=== PATIENT | female | born 1980 | race Caucasian/White ===

== ENCOUNTER 2017-07-13 10:31 | Outpatient (RCR) | payer MEDICAID ==
[~2017-07-13 10:31] MED LIST: AGM875T PO; CYCL10TA9 PO; FRS325T; HEADACHE RELIEF; HYDR1TAB PO; IPRA3AMP19 IH; METH4TAB PO; ONDN4T; PNV; PREN1TAB4; PROP1TAB77; TRAM-21 PO; [UNRECOGNIZED DRUG - CODE]
== END 2017-07-28 | disposition home or self-care (01) ==
PROVIDERS: ATTEND Orthopaedic Surgery Sports Medicine
DX: M25.562 Pain in left knee (principal)

== ENCOUNTER → 2017-11-06 | Outpatient (CLI) | payer MEDICAID ==
[2017-11-06 16:16] LABS: BASOPHILS # (AUTO) 0.1 10^3/uL (0.0-0.1); BASOPHILS % (AUTO) 1 % (0-10); EOSINOPHILS # (AUTO) 0.2 10^3/uL (0.0-0.3); EOSINOPHILS % (AUTO) 2 % (0-10); HEMATOCRIT 39 % (35-52); HEMOGLOBIN 13.4 G/DL (11.5-16.0); LYMPHOCYTES # (AUTO) 2.6 X 10^3 (1.0-4.0); LYMPHOCYTES % (AUTO) 28 % (12-44); MEAN CORPUSCULAR HEMOGLOBIN 32 PG (25-34); MEAN CORPUSCULAR HGB CONC 35 G/DL (32-36); MEAN CORPUSCULAR VOLUME 92 FL (80-99); MEAN PLATELET VOLUME 10.1 FL (7.4-10.4); MONOCYTES # (AUTO) 0.4 X 10^3 (0.0-1.0); MONOCYTES % (AUTO) 4 % (0-12); NEUTROPHILS # (AUTO) 6.2 X 10^3 (1.8-7.8); NEUTROPHILS % (AUTO) 65 % (42-75); PLATELET COUNT 295 10^3/uL (130-400); RED BLOOD COUNT 4.19 10^6/uL (4.35-5.85); RED CELL DISTRIBUTION WIDTH 18.6 % (10.0-14.5); WHITE BLOOD COUNT 9.5 10^3/uL (4.3-11.0)
[2017-11-06 16:47] LABS: ALANINE AMINOTRANSFERASE 12 U/L (0-55); ALBUMIN 4.3 GM/DL (3.2-4.5); ALKALINE PHOSPHATASE 55 U/L (40-136); AMYLASE 88 U/L (25-125); BILIRUBIN,TOTAL 0.4 MG/DL (0.1-1.0); BUN/CREATININE RATIO 10; CALCIUM 9.5 MG/DL (8.5-10.1); CARBON DIOXIDE 23 MMOL/L (21-32); CHLORIDE 107 MMOL/L (98-107); CREATININE SERUM 0.72 MG/DL (0.60-1.30); GFR ESTIMATED > 60; GLUCOSE 84 MG/DL (70-105); LIPASE 25 U/L (8-78); POTASSIUM 3.9 MMOL/L (3.6-5.0); SODIUM 140 MMOL/L (135-145); TOTAL PROTEIN 7.1 GM/DL (6.4-8.2)
== END ==
LOC: LAB 16:02
PROVIDERS: ATTEND Family Medicine
DX: R10.10 Upper abdominal pain, unspecified (principal)
CPT/HCPCS: 36415; 80053; 82150; 83690; 85025

== ENCOUNTER → 2017-11-26 | Outpatient (CLI) | payer MEDICAID ==
--- NOTE | 2017-11-26 09:51 | Diagnostic Imaging Report ---
PROCEDURE: US Gallbladder. TECHNIQUE: Multiple real-time grayscale images were obtained over the right upper quadrant in various projections. INDICATION: Upper abdominal pain. FINDINGS: The liver shows no evidence of a focal mass. The gallbladder shows no evidence of gallstones or sludge. No wall thickening or pericholecystic fluid is seen. No biliary dilatation is identified. The right kidney is normal in size without evidence of hydronephrosis, renal calculi or focal mass. The visualized pancreas is unremarkable. IMPRESSION: Unremarkable gallbladder ultrasound. Dictated by: Dictated on workstation # [id number]
== END ==
LOC: RAD 08:21
PROVIDERS: ATTEND Family Medicine
DX: R10.11 Right upper quadrant pain (principal)
CPT/HCPCS: 76705

== ENCOUNTER 2022-06-07 21:37 | Emergency (ER) | payer MEDICAID ==
[~2022-06-07] VITALS: Ht 157.5 cm; Wt 49.9 kg
[2022-06-07 21:40] VITALS: BP 110/71
[2022-06-07 22:02] LABS: HEMATOCRIT 44 % (35-52); MEAN CORPUSCULAR HEMOGLOBIN 33 pg (25-34); MEAN CORPUSCULAR HGB CONC 34 g/dL (32-36); MEAN CORPUSCULAR VOLUME 98 fL (80-99); MEAN PLATELET VOLUME 9.7 fL (9.0-12.2); PLATELET COUNT 292 10^3/uL (130-400); WHITE BLOOD COUNT 12.8 10^3/uL (4.3-11.0)
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
[2022-06-07 22:11] LABS: PROTHROMBIN TIME PATIENT 13.1 SEC (12.2-14.7)
[2022-06-07 22:14] LABS: ALBUMIN 4.1 GM/DL (3.2-4.5); BILIRUBIN,DIRECT 0.1 MG/DL (0.0-0.3); BILIRUBIN,INDIRECT 0.2 MG/DL; BILIRUBIN,TOTAL 0.3 MG/DL (0.1-1.0); CALCIUM 9.5 MG/DL (8.5-10.1); CREATININE SERUM 1.32 MG/DL (0.60-1.30); POTASSIUM 3.8 MMOL/L (3.6-5.0); TOTAL PROTEIN 6.8 GM/DL (6.4-8.2)
[2022-06-07] MEDS ORDERED: TETANUS,DIPTH,PERTUSS P/F (BOOSTRIX) 0.5 ML VIAL IM ONE (22:15)
[2022-06-07] MEDS ORDERED: LIDOCAINE 1% INJ 20 ML VIAL ONE (22:33)
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
[2022-06-07] MEDS ORDERED: LIDOCAINE 1% INJ 20 ML VIAL INJ ONE (22:45)
[2022-06-07] MEDS ORDERED: NS IV 1000 ML 1,000 ML IV STA (22:47)
[2022-06-07] MEDS ORDERED: fentaNYL INJ 100 MCG/2 ML AMP IVP STA (22:47)
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
[2022-06-08] MEDS ORDERED: CEPH500T PO
[2022-06-08] MEDS ORDERED: ACHD5005 PO
[2022-06-08] MEDS ORDERED: LIDOCAINE 2% VISCOUS 15 ML UDC PO ONE
[2022-06-08] MEDS ORDERED: KETOROLAC 15 MG/ML VIAL IVP ONE (00:30)
[2022-06-08] MEDS ORDERED: BACITRACIN OINTMENT 28 GM TUBE ONE (01:32)
[2022-06-08] MEDS ORDERED: oxyCODONE/APAP 5/325MG (PERCOCET 5) TABLET PO ONE (02:15)
[2022-06-08] MEDS ORDERED: ALPRAZolam 0.25 MG (XANAX) TAB PO ONE (03:30)
[2022-06-08] MEDS ORDERED: RX-OXYCODONE/APAP 5-325 MG #4 TAB PK PO PRN (04:30)
[2022-06-08] MEDS ORDERED: BACITRACIN OINTMENT 28 GM TUBE TOP SCH (09:00)
[2022-06-09] MEDS ORDERED: ACHD5005 PO (13:21)
[2022-06-09] MEDS ORDERED: CEPH500T PO (13:21)
== END 2022-06-08 05:00 | disposition home or self-care (01) ==
LOC: EDUNIT# 21:37 → ER 21:39
DX: S01.01XA Laceration without foreign body of scalp, initial encounter (principal); S01.21XA Laceration without foreign body of nose, initial encounter; S00.81XA Abrasion of other part of head, initial encounter; S80.212A Abrasion, left knee, initial encounter; S80.211A Abrasion, right knee, initial encounter; S40.812A Abrasion of left upper arm, initial encounter; S40.811A Abrasion of right upper arm, initial encounter; S40.212A Abrasion of left shoulder, initial encounter; Z23 Encounter for immunization; Z28.310 Unvaccinated for COVID-19; V20.5XXA Motorcycle passenger injured in collision with pedestrian or animal in traffic accident, initial encounter; Y92.410 Unspecified street and highway as the place of occurrence of the external cause
CPT/HCPCS: 36415; 70450; 70486; 71045; 72125; 72170; 73030; 80048; 80076; 80320; 84703; 85027; 85610; 85730; 86850; 86900; 86901; 90715; 93041

== ENCOUNTER → 2022-06-28 | Outpatient (CLI) | payer MEDICAID ==
[~2022-06-28] MED LIST changes: +ACHD5005 PO; +CEPH500T PO
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
== END ==
LOC: RAD 12:21
PROVIDERS: ATTEND Family Medicine
DX: S89.91XA Unspecified injury of right lower leg, initial encounter (principal); S79.911A Unspecified injury of right hip, initial encounter; X58.XXXA Exposure to other specified factors, initial encounter
CPT/HCPCS: 73502; 73562